=== PATIENT | female | born 2000 | race Caucasian/White ===

== ENCOUNTER 2018-08-25 14:15 | Emergency (ER) | payer OTHER ==
[~2018-08-25] VITALS: Ht 154.9 cm; Wt 81.6 kg
[2018-08-25] MEDS ORDERED: DICY20TA PO (14:43)
== END 2018-08-25 17:15 | disposition home or self-care (01) ==
LOC: ER 14:15
DX: K52.9 Noninfective gastroenteritis and colitis, unspecified (principal)

== ENCOUNTER 2025-08-19 09:13 | Emergency (ER) | payer OTHER ==
[~2025-08-19] VITALS: Ht 154.9 cm; Wt 81.6 kg
[~2025-08-19 09:13] MED LIST: DICY20TA PO
== END 2025-08-19 10:37 | disposition home or self-care (01) ==
LOC: ER 09:13
DX: F41.0 Panic disorder [episodic paroxysmal anxiety] (principal); F41.9 Anxiety disorder, unspecified; Z87.09 Personal history of other diseases of the respiratory system